=== PATIENT | female | born 1950 | race Caucasian/White ===

== ENCOUNTER 2016-09-14 13:34 | Inpatient (IN) | payer MEDICARE, OTHER ==
[~2016-09-14] VITALS: Ht 165.1 cm; Wt 80.9 kg
[~2016-09-14 13:34] MED LIST: ALPRAZOLAM0.5 MG PO; AMARYL 2MG TABLE2 MG PO; ASPIRIN81 MG PO; COQ-10100 MG PO; ISOSORBIDE MONO30 MG PO; LEXAPRO TAB 1010 MG PO; LIPITOR TAB 2020 MG PO; LOSARTAN-HCTZ1 EACH PO; METOPROLOL SUCC25 MG PO; NEURONTIN 100100 MG PO; NITROSTAT 0.40.4 MG SL; RANITIDINE HCL150 M1 PO; TRADJENTA5 MG PO; TRAMADOL HCL50 MG PO
[2016-09-14 15:48] LABS: HEMOGLOBIN 13.3 gm/dl (12.3-15.3); RED BLOOD COUNT 4.7 M/UL (4.00-5.10); WHITE BLOOD COUNT 6.4 K/UL (4.5-11.0)
[2016-09-15 06:07] LABS: HEMOGLOBIN 12.1 gm/dl (12.3-15.3); RED BLOOD COUNT 4.29 M/UL (4.00-5.10); WHITE BLOOD COUNT 5.8 K/UL (4.5-11.0)
[2016-09-16 04:59] LABS: HEMOGLOBIN 10.8 gm/dl (12.3-15.3); RED BLOOD COUNT 3.85 M/UL (4.00-5.10); WHITE BLOOD COUNT 6.3 K/UL (4.5-11.0)
[2016-09-17 06:14] LABS: HEMOGLOBIN 11.4 gm/dl (12.3-15.3); RED BLOOD COUNT 4.1 M/UL (4.00-5.10); WHITE BLOOD COUNT 6.8 K/UL (4.5-11.0)
[2016-09-17 06:41] LABS: BUN/CREATININE RATIO 26 (0-10)
[2016-09-17] MEDS ORDERED: AUGMENTIN TAB875 MG PO (15:14)
[2016-09-17] MEDS ORDERED: COLACE 100MG C100 MG PO (15:14)
[2016-09-17] MEDS ORDERED: TYLENOL 325MG325 MG PO ×2 (15:16→15:17)
== END 2016-09-17 23:00 | disposition home or self-care (01) | DRG 684 ==
LOC: ER1 13:34 → M/S 20:19 → ZEROF 20:19 → M/S 20:59
PROVIDERS: Student in an Organized Health Care Education/Training Program; ADMIT Internal Medicine
DX: N17.9 Acute kidney failure, unspecified (principal); E86.0 Dehydration; E11.65 Type 2 diabetes mellitus with hyperglycemia; I12.9 Hypertensive chronic kidney disease with stage 1 through stage 4 chronic kidney disease, or unspecified chronic kidney disease; N18.3 Chronic kidney disease, stage 3 (moderate); K59.09 Other constipation; E78.5 Hyperlipidemia, unspecified; J06.9 Acute upper respiratory infection, unspecified; J20.9 Acute bronchitis, unspecified; M06.9 Rheumatoid arthritis, unspecified; K21.9 Gastro-esophageal reflux disease without esophagitis; M19.90 Unspecified osteoarthritis, unspecified site; G89.29 Other chronic pain; M54.5 Low back pain; S00.03XA Contusion of scalp, initial encounter; W19.XXXA Unspecified fall, initial encounter; J30.2 Other seasonal allergic rhinitis; F32.9 Major depressive disorder, single episode, unspecified; F41.9 Anxiety disorder, unspecified; Z79.84 Long term (current) use of oral hypoglycemic drugs; Z79.82 Long term (current) use of aspirin; Z79.899 Other long term (current) drug therapy; Z88.8 Allergy status to other drugs, medicaments and biological substances; Z90.710 Acquired absence of both cervix and uterus; Z98.890 Other specified postprocedural states; Z82.3 Family history of stroke; Z83.79 Family history of other diseases of the digestive system; Z80.0 Family history of malignant neoplasm of digestive organs
CPT/HCPCS: 36415; 51701; 70450; 71010; 72125; 72170; 80048; 80053; 81001; 82009; 82550; 82553; 82803; 82962; 83874; 84484; 85025; 85610; 85730; 87086; 93005; 93880; 96361; 96372; 96374; 96375; 99285; G0378; J1815; J2270; J2405; J7030